=== PATIENT | female | born 1965 | race Caucasian/White ===

== ENCOUNTER → 2019-07-19 09:09 | Outpatient (CLI) | payer OTHER, SELFPAY ==
--- NOTE | 2019-07-19 09:23 | RAD_ITS ---
STUDY: X-RAY - LEFT ANKLE REASON FOR EXAM: Female, 54 years old. Pain. TECHNIQUE: 3 view(s) of the ankle. COMPARISON: None. FINDINGS: Normal visualized distal tibia. There is a sclerotic tubular lucency in the distal fibula thought to represent a prior screw track. Normal tibiotalar articulation and ankle mortise. Normal visualized talus and calcaneus. The visualized subtalar, talonavicular, calcaneocuboid and tarsal articulations are normal. The soft tissue structures are unremarkable. RAD/Ankle min 3 Views IMPRESSION: 1. No acute fracture or dislocation. 2. Lucency in the distal fibula. Question prior surgical hardware. Electronically Signed: Juan J Ribeiro DO at 17:56 EST Tel [phone], Service support ,
--- NOTE | 2019-07-19 09:23 | RAD_ITS ---
STUDY: X-RAY - LEFT FOOT CLINICAL: Female, 54 years old. Pain. TECHNIQUE: 2 view(s) of the foot. COMPARISON: Left ankle, July 19, 2019. FINDINGS: Normal talus, calcaneus, and tarsal bones. Normal visualized subtalar, talonavicular, calcaneocuboid, tarsal and tarsometatarsal articulations. Normal metatarsi. 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 Normal tibial and fibular sesamoid bones. Normal interphalangeal joint of the great toe. Normal phalanges of the great toe. Normal second through fifth metatarsophalangeal joints. Normal interphalangeal joints and phalanges of the lesser toes. The soft tissue structures are unremarkable. 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 There is no acute fracture or dislocation. Electronically Signed: Juan J Ribeiro DO at 17:58 EST Tel [phone], Service support ,
== END ==
PROVIDERS: Referring Provider Podiatrist; Visit Provider Podiatrist
DX: M19.90 Unspecified osteoarthritis, unspecified site (principal)
CPT/HCPCS: 73610; 73620

== ENCOUNTER → 2019-08-09 09:22 | Outpatient (CLI) | payer OTHER, SELFPAY ==
[2019-08-09 10:20] LABS: Erythrocyte Sedimentation Rate 2 mm/hr (0-30)
[2019-08-09 10:32] LABS: CRP < 2.90 mg/L (0.0-3.0); Rheumatoid Factor < 10.0 IU/mL (<15); Uric Acid 3.2 mg/dL (2.6-6.0)
[2019-08-16 14:06] LABS: HLA B27 Negative (.)
== END ==
PROVIDERS: Referring Provider Podiatrist; Visit Provider Podiatrist
DX: M06.9 Rheumatoid arthritis, unspecified (principal)
CPT/HCPCS: 36415; 81374; 84550; 85652; 86038; 86140; 86431